=== PATIENT | male | born 1990 | race Caucasian/White ===

== ENCOUNTER 2020-02-27 07:31 | Emergency (ER) | payer SELFPAY ==
[~2020-02-27] VITALS: Ht 175.3 cm; Wt 100.0 kg
--- OUTSIDE RECORDS SUMMARY | 2020-02-27 07:40 | XMS REPORT | Continuity of Care Document ---
Author Organization Unknown Address Unknown Phone Unavailable Allergies Active Description Code Type Severity Reaction Onset Reported/Identified Relationship to Patient Clinical Status Yes Amoxicillin Drug Allergy N/A N/A 04/25/2014 Yes Penicillins Drug Allergy N/A N/A 04/25/2014 Medications There is no data. Problems Date Dx Coded Attending Type Code Diagnosis Diagnosed By 04/25/2014 HERBIE BASS APRN 785.6 ENLARGEMENT OF LYMPH NODES 04/25/2014 HERBIE BASS APRN 796.2 ELEVATED BLOOD PRESSURE READING WITHOUT DIAGNOSIS OF H YPERTENSION Procedures Code [place] [address] ROUT INE VENIPUNCTURE 04/25/2014 62048 CBC 04/25/2014 Results There is no data. Encounters ACCT No. Visit Date/Time Discharge Status Pt. Type Provider Facility Loc./Unit Complaint [id number] 04/25/2014 14:06:00 04/25/2014 23:59: 59 CLS Outpatient HERBIE BASS APRN
--- OUTSIDE RECORDS SUMMARY | 2020-02-27 07:40 | XMS REPORT ---
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 Name Role Phone SHELIA HERBIE Unavailable PROBLEMS Type Condition ICD9-CM Code [id number] Code Onset Dates Condition S tatus SNOMED Code Problem Enlargement of lymph nodes 785.6 Act kayla [id number] Problem Elevated blood pressure reading without diagnosi s of hypertension 796.2 Active [id number] ALLERGIES No Information ENCOUNTERS Encounter Location Date Diagnosis [facility] [id number] [place], [place] [id number] February, Dental examination V72.2 [facility] [place] [id number] [place] [address] Jan, [facility] [place] [id number] [place] [address] Apr, [facility] [place] [id number] [place] [address] Apr, [facility] [place] [id number] [place] [id number] Apr, [facility] [place] [address] [address] Apr, IMMUNIZATIONS No Known Immunizations SOCIAL HISTORY Never Assessed REASON FOR VISIT PLAN OF CARE VITAL SIGNS Height 67 in 2014-04-25 Weight 171.6 lbs 2014-04-25 Temperature 98.6 degrees Fahrenheit 2014-04-25 Heart Rate 88 bpm 2014-04-25 Respiratory Rate 18 2014-04-25 Blood pressure systolic 142 mmHg 2014-04-25 Blood pressure diastolic 90 mmHg 2014-04-25 MEDICATIONS Unknown Medications RESULTS No Results PROCEDURES Procedure Date Ordered Result Body Site VENIPUNCT, ROUTINE* April 25, 2014 COMPLETE CBC W/AUTO DIFF WBC April 25, 2014 INSTRUCTIONS MEDICATIONS ADMINISTERED No Known Medications
--- NOTE | 2020-02-27 08:11 | ED Back Pain ---
General Chief Complaint: Back Problems Stated Complaint: LLQ/LT FLANK PAIN Source of Information: Patient Exam Limitations: No Limitations History of Present Illness Date Seen by Provider: February 27, 2020 Time Seen by Provider: 07:49 Initial Comments 29-year-old male presents to the emergency room complaining of pain since early last night. Patient has pain in his left lumbar left flank and left anterior abdominal wall area. Pain is consistent following the track of a ureteral lithiasis in the left side. He has no prior history of ureteral or kidney stones. Patient does admit to using marijuana but denies any other alcohol or substances of abuse. He is in moderate to severe pain. Patient denies any history of HEENT cardiovascular pulmonary abdominal renal GI genitourinary or musculoskeletal disorders. Patient has given informed consent for diagnostic and therapeutic services. Patient also was given informed consent for diagnostic imaging with CT scan of the abdomen and pelvis and for hydromorphone IV pain medication for severe pain. CSPMP including [place] was done and the patient has no history of getting opioid medications for many providers Location: Lumbar Spine, Other (left flank and left anterior abdominal area) Timing/Duration: 12 Hours Severity: Moderate Pain/Injury Location: Abdomen (left anterior abdominal wall), Other (classic left ureteral Path Pain) Radiation: Other (left lumbar paraspinal pain and left flank pain and left anterior abdominal wall down to the left inguinal area) Modifying Factors: Improves With Movement Associated Symptoms: muscle spasms Allergies and Home Medications Allergies Coded Allergies: No Known Drug Allergies (Unverified , 02/27/20) Home Medications Cephalexin 500 Mg Capsule, 500 MG PO Q6H Prescribed by: CANDIDO CASTRO on 02/27/20902 Hydrocodone/Acetaminophen 1 Each Tablet, 2 EACH PO Q6H Prescribed by: CANDIDO CASTRO on 02/27/20902 Patient Home Medication List Home Medication List Reviewed: Yes Review of Systems Constitutional: see HPI, other (marked pain in the left flank) EENTM: no symptoms reported, other (poor oral hygiene) Respiratory: no symptoms reported, other (patient does have wheezing on auscultation admits using smoke marijuana on a regular basis and strong advice to stop doing so) Cardiovascular: no symptoms reported Gastrointestinal: LLQ (left flank and left lower quadrant pain consistent with ureterolithiasis), nausea Genitourinary: see HPI, other (minimal dysuria but significant left flank pain) Musculoskeletal: see HPI, back pain (left lumbar area), muscle stiffness (left flank) Skin: no symptoms reported Psychiatric/Neurological: Anxiety (from pain) Past Savtqnn-Vyqflz-Wihopu Hx Past Med/Social Hx: Reviewed Nursing Past Med/Soc Hx Patient Social History Alcohol Use: Denies Use Smoking Status: Current Everyday Smoker (marijuana) Recent Foreign Travel: No Contact w/Someone Who Travel: No Past Medical History Surgeries: Yes Abdominal (left flank pain on for the last night) Respiratory: No (however patient is a daily marijuana smoker and does have wheezing on auscu) Currently Using CPAP: No Currently Using BIPAP: No Neurological: No Reproductive Disorders: No Sexually Transmitted Disease: No HIV/AIDS: No Genitourinary: Yes (or complaints for the past 12 hours left flank pain consistent with stone) Gastrointestinal: No Musculoskeletal: No Endocrine: No Are Your Blood Sugars Over 250: No HEENT: No Loss of Vision: Denies Hearing Impairment: Denies Cancer: No Psychosocial: No Integumentary: No Blood Disorders: No Adverse Reaction/Blood Tranf: No Family Medical History Reviewed Nursing Family Hx Physical Exam Vital Signs Vital Signs - First Documented 02/27/20 07:45 Temp 35.1 Pulse 137 Resp 22 B/P (MAP) 146/101 (116) Pulse Ox 100 O2 Delivery Room Air Capillary Refill : Height, Weight, BMI Height: '" Weight: lbs. oz. kg; BMI Method: General Appearance: Moderate Distress (the community pain in the left flank), Obese HEENT: PERRL/EOMI, Normal ENT Inspection, Pharynx Normal, Other (poor oral hygiene) Neck: Full Range of Motion, Normal Inspection, Non Tender, Supple Cardiovascular: Regular Rate, Rhythm, No Edema, No Gallop, No JVD, No Murmur, Normal Peripheral Pulses Respiratory: Chest Non Tender, No Accessory Muscle Use, No Respiratory Distress, Wheezing (for coronary to smoke marijuana abuse strongly advised to stop) Peripheral Pulses: 2+ Carotid (R), 2+ Carotid (L), 2+ Radial Pulses (R), 2+ Radial Pulses (L) Gastrointestinal: Normal Bowel Sounds, No Organomegaly, No Pulsatile Mass, Soft, Tenderness (left flank and left lower abdominal anterior wall near the inguinal area) Back: Normal Inspection, CVA Tenderness (L) Extremity: Normal Capillary Refill, Normal Inspection, Normal Range of Motion, Non Tender, No Calf Tenderness Neurologic/Psychiatric: Alert, Oriented x3, No Motor/Sensory Deficits, Normal 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, 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 Norm as 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 Skin: Normal Color, Warm/Dry Lymphatic: No Adenopathy Progress/Results/Core Measures Results/Orders Lab Results Laboratory Tests Test 02/27/20 07:45 02/27/20 08:02 Range/Units Urine Color YELLOW Urine Clarity CLEAR Urine pH 6.0 5-9 Urine Specific [place]ott 1.025 H 1.016-1.022 Urine Protein NEGATIVE NEGATIVE Urine Glucose (UA) NEGATIVE NEGATIVE Urine Ketones NEGATIVE NEGATIVE Urine Nitrite NEGATIVE NEGATIVE Urine Bilirubin NEGATIVE NEGATIVE Urine Urobilinogen 0.2 < = 1.0 MG/DL Urine Leukocyte Esterase NEGATIVE NEGATIVE Urine RBC (Auto) 3+ H NEGATIVE Urine RBC >100 H /HPF Urine WBC NONE /HPF Urine Crystals NONE /LPF Urine Bacteria TRACE /HPF Urine Casts NONE /LPF Urine Mucus NEGATIVE /LPF Urine Culture Indicated NO White Blood Count 13.4 H 4.3-11.0 10^3/uL Red Blood Count 5.51 4.35-5.85 10^6/uL Hemoglobin 16.2 13.3-17.7 G/DL Hematocrit 48 40-54 % Mean Corpuscular Volume 87 80-99 FL Mean Corpuscular Hemoglobin 29 25-34 PG Mean Corpuscular Hemoglobin Concent 34 32-36 G/DL Red Cell Distribution Width 13.2 10.0-14.5 % Platelet Count 235 130-400 10^3/uL Mean Platelet Volume 10.0 7.4-10.4 FL Neutrophils (%) (Auto) 65 42-75 % Lymphocytes (%) (Auto) 26 12-44 % Monocytes (%) (Auto) 6 0-12 % Eosinophils (%) (Auto) 3 0-10 % Basophils (%) (Auto) 1 0-10 % Neutrophils # (Auto) 8.6 H 1.8-7.8 X 10^3 Lymphocytes # (Auto) 3.5 1.0-4.0 X 10^3 Monocytes # (Auto) 0.9 0.0-1.0 X 10^3 Eosinophils # (Auto) 0.4 H 0.0-0.3 10^3/uL Basophils # (Auto) 0.1 0.0-0.1 10^3/uL Neutrophils % (Manual) 63 % Lymphocytes % (Manual) 27 % Monocytes % (Manual) 8 % Eosinophils % (Manual) 1 % Basophils % (Manual) 0 % Band Neutrophils 1 % Blood Morphology Comment NORMAL Sodium Level 140 135-145 MMOL/L Potassium Level 4.0 3.6-5.0 MMOL/L Chloride Level 101 98-107 MMOL/L Carbon Dioxide Level 28 21-32 MMOL/L Anion Gap 11 5-14 MMOL/L Blood Urea Nitrogen 16 7-18 MG/DL Creatinine 0.82 0.60-1.30 MG/DL Estimat Glomerular Filtration Rate > 60 BUN/Creatinine Ratio 20 Glucose Level 176 H 70-105 MG/DL Calcium Level 9.5 8.5-10.1 MG/DL Corrected Calcium 9.2 8.5-10.1 MG/DL Total Bilirubin 0.4 0.1-1.0 MG/DL Aspartate Amino Transf (AST/SGOT) 18 5-34 U/L Alanine Aminotransferase (ALT/SGPT) 25 0-55 U/L Alkaline Phosphatase 64 40-136 U/L Total Protein 7.0 6.4-8.2 GM/DL Albumin 4.4 3.2-4.5 GM/DL My Orders Orders - CANDIDO CASTRO DO Cbc And Manual Diff (02/27/20 08:03) Comprehensive Metabolic Panel (02/27/20 08:03) Urinalysis (02/27/20 08:03) Ct Abd/Pelvis Wo(Kidney Stone) (02/27/20 08:03) Ns Iv 1000 Ml (Sodium Chloride 0.9%) (02/27/20 08:15) Hydromorphone Injection (Dilaudid Inject (02/27/20 08:15) Hydromorphone Injection (Dilaudid Inject (02/27/20 09:30) Medications Given in ED Current Medications Medications Dose Ordered Sig/Chantale Route Start Time Stop Time Status Last Admin Dose Admin Hydromorphone HCl 0.5 mg ONCE ONCE IV 02/27/20 08:15 02/27/20 08:16 DC 02/27/20 08:16 0.5 MG Hydromorphone HCl 0.5 mg ONCE ONCE IV 02/27/20 09:30 02/27/20 09:31 02/27/20 09:22 0.5 MG Sodium Chloride 1,000 ml @ 100 mls/hr Q10H ONCE IV 02/27/20 08:15 02/27/20 18:14 02/27/20 08:16 100 MLS/HR Vital Signs/I&O 02/27/20 07:45 Temp 35.1 Pulse 137 Resp 22 B/P (MAP) 146/101 (116) Pulse Ox 100 O2 Delivery Room Air Departure Impression Primary Impression: Kidney stone Disposition: HOME, SELF-CARE Condition: Improved Departure-Patient Inst. Referrals: NO,LOCAL PHYSICIAN (PCP/Family) Primary Care Physician Patient Instructions: Kidney Stones in Adults Add. Discharge Instructions: Patient will follow-up with Dr. Weston urologist at [facility]. The patient has been sent home with hydrocodone and cephalexin. He does have a slight leukocytosis and has some dysuria. Patient understands he needs to push water. Has been advised to stop using marijuana as he does have some wheezing but no signs of consolidation. The patient is aware of the risks benefits and alternatives of hydrocodone therapy the controlled substance pharmacy monitoring program was contacted he has not had any opioids from any other provider in [place]. All discharge instructions reviewed with patient and/or family. Voiced understanding. Scripts Hydrocodone/Acetaminophen (Hydrocodone-Acetamin 5-325 mg) 1 Each Tablet 2 EACH PO Q6H for Pain for 7 Days, #40 TAB Prov: CANDIDO CASTRO DO 02/27/20 Cephalexin (Keflex) 500 Mg Capsule 500 MG PO Q6H for Abdominal Pain for 10 Days, #40 CAP Prov: CANDIDO CASTRO DO 02/27/20 Copy Copies To 1: MADELINE REVELES MD, ANTHONY H DO February 27, 2020 08:11
[2020-02-27 08:15] LABS: BACTERIA,URINE TRACE /HPF; BILIRUBIN,URINE NEGATIVE (NEGATIVE); CLARITY,URINE CLEAR; COLOR,URINE YELLOW; GLUCOSE, URINE (UA) NEGATIVE (NEGATIVE); KETONES,URINE NEGATIVE (NEGATIVE); LEUKOCYTE ESTERASE ,URINE NEGATIVE (NEGATIVE); NITRITE,URINE NEGATIVE (NEGATIVE); PROTEIN,URINE NEGATIVE (NEGATIVE); RBC,URINE >100 /HPF
[2020-02-27 08:15] LABS: WHITE BLOOD COUNT 13.4 10^3/uL (4.3-11.0)
[2020-02-27] MEDS ORDERED: HYDROmorphone 2 MG/ML VIAL (DILAUDID) IV ONE ×2 (08:15→09:30)
[2020-02-27] MEDS ORDERED: NS IV 1000 ML 1,000 ML IV ONE (08:15)
[2020-02-27 08:16] LABS: BASOPHILS # (AUTO) 0.1 10^3/uL (0.0-0.1); BASOPHILS % (AUTO) 1 % (0-10); EOSINOPHILS # (AUTO) 0.4 10^3/uL (0.0-0.3); EOSINOPHILS % (AUTO) 3 % (0-10); HEMATOCRIT 48 % (40-54); HEMOGLOBIN 16.2 G/DL (13.3-17.7); LYMPHOCYTES # (AUTO) 3.5 X 10^3 (1.0-4.0); LYMPHOCYTES % (AUTO) 26 % (12-44); MEAN CORPUSCULAR HEMOGLOBIN 29 PG (25-34); MEAN CORPUSCULAR HGB CONC 34 G/DL (32-36); MEAN CORPUSCULAR VOLUME 87 FL (80-99); MONOCYTES # (AUTO) 0.9 X 10^3 (0.0-1.0); MONOCYTES % (AUTO) 6 % (0-12); NEUTROPHILS # (AUTO) 8.6 X 10^3 (1.8-7.8); NEUTROPHILS % (AUTO) 65 % (42-75); PLATELET COUNT 235 10^3/uL (130-400); RED CELL DISTRIBUTION WIDTH 13.2 % (10.0-14.5)
[2020-02-27 08:36] LABS: ALANINE AMINOTRANSFERASE 25 U/L (0-55); ALBUMIN 4.4 GM/DL (3.2-4.5); ALKALINE PHOSPHATASE 64 U/L (40-136); BILIRUBIN,TOTAL 0.4 MG/DL (0.1-1.0); BUN/CREATININE RATIO 20; CALCIUM 9.5 MG/DL (8.5-10.1); CARBON DIOXIDE 28 MMOL/L (21-32); CHLORIDE 101 MMOL/L (98-107); CREATININE SERUM 0.82 MG/DL (0.60-1.30); GFR ESTIMATED > 60; GLUCOSE 176 MG/DL (70-105); SODIUM 140 MMOL/L (135-145)
--- NOTE | 2020-02-27 08:47 | Diagnostic Imaging Report ---
CT ABD/PELVIS WO(KIDNEY STONE) TECHNIQUE: Unenhanced CT imaging of the abdomen and pelvis was performed. 2-D reformats are created and submitted for interpretation. Automatic exposure controls were utilized to optimize patient dose. INDICATION: Left lower quadrant pain. COMPARISON: None available. FINDINGS: Evaluation of the abdominal viscera is mildly limited without contrast. Lower chest: The lung bases are clear. No pericardial or pleural effusion. Peritoneum: No free intraperitoneal air or fluid. Liver and biliary system: Unenhanced liver is normal. Cholelithiasis. No features of acute cholecystitis. Spleen and Pancreas: Spleen is normal. Unenhanced pancreas is grossly normal. Adrenals: Normal. tract: Mild left hydroureter due to a 2 mm stone in the distal left ureter just proximal to the UVJ. No hydronephrosis on left. No right-sided urinary tract calculi or hydronephrosis. GI tract: Stomach is decompressed. No bowel obstruction. No pericolonic inflammatory changes. Normal appendix. Vasculature and Lymph nodes: Normal caliber aorta. No abdominal or pelvic lymphadenopathy. Musculoskeletal: No concerning osseous lesion. IMPRESSION: 1. There is a 2 mm stone in the distal left ureter resulting in mild left hydroureter. However, there is no hydronephrosis. Dictated by: Dictated on workstation # [id number]
[2020-02-27 08:52] LABS: BAND NEUTROPHILS 1 %; BASOPHILS % (MANUAL) 0 %; EOSINOPHILS % (MANUAL) 1 %; LYMPHOCYTES % (MANUAL) 27 %; MONOCYTES % (MANUAL) 8 %; NEUTROPHILS % (MANUAL) 63 %
[2020-02-27 08:53] LABS: RBC MORPH NORMAL
[2020-02-27] MEDS ORDERED: CEPH-507 PO (09:03)
[2020-02-27] MEDS ORDERED: HYDR-83 PO (09:03)
[2020-02-27 10:06] VITALS: BP 140/79
== END 2020-02-27 10:06 | disposition home or self-care (01) ==
LOC: ER FS 07:35
DX: N20.0 Calculus of kidney (principal); F17.200 Nicotine dependence, unspecified, uncomplicated
CPT/HCPCS: 36415; 74176; 80053; 81000; 85007; 85027

== ENCOUNTER 2023-09-04 07:38 | Emergency (ER) | payer MEDICAID, OTHER ==
[~2023-09-04] VITALS: Ht 180 cm; Wt 115.0 kg
[~2023-09-04 07:38] MED LIST: ACHD5005 PO; CEPH-507 PO
[2023-09-04 07:47] VITALS: BP 161/105
--- NOTE | 2023-09-04 07:49 | ED EENT ---
History of Present Illness General Chief Complaint: Dental Problems/Pain Stated Complaint: DENTAL PAIN History of Present Illness Date Seen by Provider: Sep 04, 2023 Time Seen by Provider: 07:44 Initial Comments 32-year-old male presents with dental pain/dental infection has been gone for about a week. He reports he has an appointment with his dentist tomorrow. He is here because he feels like he may need some antibiotics. Patient continuing for pain the last couple days because he reports he was using Tylenol and ibuprofen did not seem to help. Allergies and Home Medications Allergies Coded Allergies: No Known Drug Allergies (Unverified , 02/27/20) Patient Home Medication List Home Medication List Reviewed: Yes Cephalexin (Keflex) 500 Mg Capsule, 500 MG PO Q6H Prescribed by: CANDIDO CASTRO on 02/27/20 09 Hydrocodone/Acetaminophen (Hydrocodone-Acetamin 5-325 mg) 1 Each Tablet, 2 EACH PO Q6H Prescribed by: CANDIDO CASTRO on 02/27/20902 Review of Systems Review of Systems Constitutional: see HPI Ears: No Symptoms Reported Nose: no symptoms reported Mouth: see HPI Throat: no symptoms reported Respiratory: no symptoms reported Gastrointestinal: no symptoms reported Musculoskeletal: no symptoms reported Past Fgeknln-Aobxua-Vulggr Hx Seasonal Allergies Seasonal Allergies: No Past Medical History Surgeries: Yes Abdominal Respiratory: No (however patient is a daily marijuana smoker and does have wheezing on auscu) Currently Using CPAP: No Currently Using BIPAP: No Cardiac: No Neurological: No Reproductive Disorders: No Sexually Transmitted Disease: No HIV/AIDS: No Genitourinary: Yes (or complaints for the past 12 hours left flank pain consistent with stone) Gastrointestinal: No Musculoskeletal: No Endocrine: No HEENT: No Loss of Vision: Denies Hearing Impairment: Denies Cancer: No Psychosocial: No Integumentary: No Blood Disorders: No Adverse Reaction/Blood Tranf: No Physical Exam Height, Weight, BMI Height: '" Weight: lbs. oz. kg; 32.00 BMI Method: General Appearance: WD/WN, no apparent distress Mouth/Throat: dental tenderness, other (Severe dental caries right lower) Cardiovascular: normal peripheral pulses, regular rate, rhythm Respiratory: lungs clear, normal breath sounds Neurologic/Psychiatric: alert, normal mood/affect, oriented x 3 Skin: normal color, warm/dry Progress/Results/Core Measures Progress Progress Note : Progress Note Patient with severe dental caries with likely infection. Will start him on p enicillin. He has an appoint with his dentist tomorrow that he should keep. He can use ibuprofen, Tylenol, Orajel as needed for pain. Departure Impression Primary Impression: Infected dental caries Disposition: HOME, SELF-CARE Condition: Stable Departure-Patient Inst. Referrals: NO,LOCAL PHYSICIAN (PCP/Family) Primary Care Physician Patient Instructions: Dental Pain Add. Discharge Instructions: Please keep your appointment with the dentist tomorrow. You may use liquid ibuprofen gelcaps every 4 hours as needed for pain. Please puncture hole in the gelcap and place gel directly on tooth with pain. Orajel as directed on package. All discharge instructions reviewed with patient and/or family. Voiced understanding. Scripts Penicillin V Potassium (Penicillin V Potassium) 500 Mg Tablet 500 MG PO Q6H, #40 TAB Prov: SIDDHARTHA PARIS DO 09/04/23 SIDDHARTHA PARIS DO Sep 04, 2023 07:49
[2023-09-04] MEDS ORDERED: PENI500T PO (07:54)
== END 2023-09-04 07:57 | disposition home or self-care (01) ==
LOC: EDUNIT# 07:38 → ER FS 07:39
DX: K02.9 Dental caries, unspecified (principal)
CPT/HCPCS: 99282